=== PATIENT | female | born 1940 | race Caucasian/White ===

== ENCOUNTER → 2016-12-12 | Outpatient (CLI) | payer BC, MEDICARE ==
[~2016-12-12] MED LIST: DORZ1SOL2 OU; GABA100C4 PO; MECL25CH PO; SIMV40 PO; TEMA15 PO; XALA0.00 EACH EYE
--- NOTE | 2016-12-17 11:35 | RSPPFT ---
DATE OF PROCEDURE: 12/12/16 COMMENTS: Spirometry with normal flow rates and ratios. Slow vital capacity is 88%. TLC is 96%. Diffusion capacity is normal. A positive response to acutely inhaled bronchodilator is noted. IMPRESSION: 1. No evidence of airways obstruction. 2. No evidence of airways restriction. 3. Normal diffusion capacity. 4. Positive response to acutely inhaled bronchodilator.
== END ==
LOC: HRSP 13:15
PROVIDERS: ATTEND Internal Medicine Cardiovascular Disease
DX: R06.02 Shortness of breath (principal)
CPT/HCPCS: 94060; 94726; 94729